=== PATIENT | female | born 1990 | race Hispanic/Latino ===

== ENCOUNTER → 2022-04-29 13:43 | Outpatient (CLI) | payer OTHER, SELFPAY ==
--- NOTE | 2022-04-29 | DI.ECHO.S_ITS ---
[place]---------+ [facility] +---------+ : : [address] : : : : [id number] : : : : Phone: [phone]+ Echocardiogram Report + + :Name: TONIE BUSTAMANTE Study Date: 04/29/2022 Height: 63 in : :[facility] ReadingLocation: Weight: 125 lb : : Gender: Female BSA: 1.6 m2 : :: 1990 Age: 31 yrs BP: 124/78 mmHg: :Reason For Study: RIGHT BUNDLE-BRANCH BLOCK : :Ordering Physician: NADEGE, : :MARIA ESTHER Performed By: Helga Almaguer : :Referring: MARIA ESTHER LIGHT : + + Interpretation Summary The left ventricle appears normal in size, wall thickness, and systolic function without any focal wall motion abnormalities. The ejection fraction is estimated to be 60-65%. The right ventricle is normal in size and function. No significant valvular pathology seen. Procedure: A two-dimensional transthoracic echocardiogram with color flow and Doppler was performed. The study quality was technically adequate. There is no prior echocardiogram noted for this patient. The patient was in sinus rhythm with heart rates between 67-73 bpm during the exam. Left Ventricle: The left ventricle appears normal in size, wall thickness, and systolic function without any focal wall motion abnormalities. There is no thrombus. The ejection fraction is estimated to be 60-65%. There are no focal wall motion abnormalities. Diastolic parameters suggest probable normal left ventricular diastolic function and normal filling pressures. Right Ventricle: The right ventricle is normal in size and function. Atria: The left atrial size is normal. Right atrial size is normal. There is no Doppler evidence for an interatrial shunt. Mitral Valve: The mitral valve is normal in structure and function. There is trace mitral regurgitation. Aortic Valve: The aortic valve is trileaflet. The aortic valve opens well. There is no aortic valve stenosis. There is no aortic regurgitation. Tricuspid Valve: The tricuspid valve is normal in structure and function. There is mild tricuspid regurgitation. The right ventricular systolic pressure is estimated to be at least 22 mmHg based on an estimated right atrial pressure of 3 mm Hg. Pulmonic Valve: The pulmonic valve leaflets are thin and pliable; valve motion is normal. There is trace pulmonic regurgitation. Great Vessels: The aortic root is normal size. The dimensions of the ascending aorta are normal. The IVC is of normal diameter and collapses greater than 50% with a sniff. This suggests a low right atrial pressure of 3 mm Hg. Pericardium/ Pleura There is no pericardial effusion. There is no pleural effusion. MMode/2D Measurements & Calculations LVIDd: 4.9 cm LVOT diam: 2.2 cm LVIDs: 3.1 cm Ao root diam: 2.8 cm FS: 37.5 % asc Aorta Diam: 2.9 cm IVSd: 0.66 cm Ao Arch Diam (Prox Trans): 1.8 cm LVPWd: 0.56 cm LV darby. diameter/BSA (cm/m^2): 3.1 LV sys. diameter/BSA (cm/m^2): 1.9 LA A2 area: 17.7 cm2 RA long axis: 3.5 cm LA A4 area: 14.0 cm2 RA area: 9.3 cm2 LA length (vol): 4.1 cm RA vol: 20.9 ml LA vol: 51.6 ml RA : 13.2 ml/m2 LA vol index: 32.6 ml/m2 IVC diam: 1.3 cm RVD1 (basal): 3.2 cm RVD2 (mid): 2.8 cm TAPSE: 2.6 cm Doppler Measurements & Calculations Ao V2 max: 105.2 cm/sec LVOT Max Refugio: 93.7 cm/sec Ao V2 mean: 79.6 cm/sec LV V1 max P.5 mmHg Ao max P.4 mmHg LV V1 VTI: 18.9 cm Ao mean P.7 mmHg MURRAY(I,D): 3.2 cm2 Ao V2 VTI: 23.0 cm MURRAY(V,D): 3.5 cm2 sev ratio: 0.82 MURRAY indexed to BSA (cm^2/m^2): 2.0 MV E max refugio: 71.1 cm/sec TR max refugio: 219.4 cm/sec MV A max refugio: 44.9 cm/sec TR max P.2 mmHg MV E/A: 1.6 PA V2 max: 90.6 cm/sec Med Peak E' Refugio: 13.1 cm/sec PA V2 mean: 66.4 cm/sec E/E' med: 5.4 PA mean P.0 mmHg Lat Peak E' Refugio: 16.3 cm/sec PA pr(Accel): 27.6 mmHg E/E' lat: 4.4 E/e' average: 4.9 MV dec time: 0.21 sec SV(LVOT): 74.0 ml Reading Physician:03:28 PM
== END ==
PROVIDERS: PCP Family Medicine; Referring Provider Internal Medicine Cardiovascular Disease; Visit Provider Internal Medicine Cardiovascular Disease
DX: I45.10 Unspecified right bundle-branch block (principal); I07.1 Rheumatic tricuspid insufficiency
CPT/HCPCS: 93306

== ENCOUNTER → 2022-07-08 15:53 | Outpatient (CLI) | payer OTHER, SELFPAY ==
--- NOTE | 2022-07-08 15:54 | DI.US.S_ITS ---
PROCEDURE: US OB <= 14 WEEKS FETUS INDICATIONS: DATES OUTSIDE/PRIOR DATING DATA: Last menstrual period (LMP): 05/12/2022. LMP-based estimated date of delivery (MIRLANDE): 02/16/2023. First dating scan (date and location): 07/08/2022. Estimated date of delivery (MIRLANDE) from first dating scan: 02/21/2023 TECHNIQUE: Real-time scanning was performed of the fetus and maternal pelvic organs, with image documentation. Endovaginal scanning was also performed to better visualize the fetus and maternal ovaries. COMPARISON: None. FINDINGS: Embryo: Present. CRL measures 1.2 cm, 7 weeks 3 days. Heart rate: 143 beats per minute Maternal organs: Ovaries are unremarkable. Other: Focal region of hypoattenuation deep to the gestational sac measuring 1.4 x 0.5 x 1.4 cm. Slow movement present within this region on the cine clip. IMPRESSION: Single living intrauterine at 7 weeks 3 days, MIRLANDE of 02/21/2023. Findings are concordant with clinical dating. Sub amniotic, round, hypoechoic lesion measuring 1.4 x 0.5 x 1.4 cm. This probably represents a fibroid, less likely venous Thibodeaux. Attention on follow-up. We strive to produce accurate, complete, and clear reports of imaging services. To assist us in improving patient care, this report was composed using standard report templates and voice recognition software. Therefore, it may contain abnormal punctuation, insertions and/or omissions. Occasional wrong-word or sound-alike substitutions may occur. Though we review the report and make efforts to correct it, we do recommend that the report be read carefully in proper context to recognize any text inaccuracies. Dictated by: Alexis Ventura M.D. on 07/08/2022 at 16:46 Approved by: Alexis Ventura M.D. on 07/08/2022 at 16:49
== END ==
PROVIDERS: PCP Family Medicine; Referring Provider Obstetrics & Gynecology; Visit Provider Obstetrics & Gynecology
DX: Z34.81 Encounter for supervision of other normal pregnancy, first trimester (principal); Z3A.01 Less than 8 weeks gestation of pregnancy
CPT/HCPCS: 76801; 76817

== ENCOUNTER → 2022-08-04 16:06 | Outpatient (CLI) | payer OTHER, SELFPAY ==
[2022-08-04 17:03] LABS: Add Manual Diff / Slide Review NO; Basophils Absolute Auto 0 /uL (0-100); Basophils Percent Auto 0.4 % (0-2); Eosinophils Absolute Auto 100 /uL (0-450); Eosinophils Percent Auto 0.8 % (2-4); Hematocrit 33.3 % (36-46); Hemoglobin 11.8 g/dL (12.0-16.0); Lymphocytes Absolute Auto 2500 /uL (1100-4500); Mean Corpuscular HGB Conc 35.4 % (30-36); Mean Corpuscular Hemoglobin 31.6 PG (26-34); Mean Corpuscular Volume 89.2 fL (80-100); Monocytes Absolute Auto 400 /uL (0-900); Monocytes Percent Auto 3.9 % (3-14); Neutrophils Absolute Auto 6900 /uL (1500-7000); Neutrophils Percent Auto 69.9 % (50-75); Platelet Count 307 X10^3/uL (150-400); Red Blood Cell Count 3.74 X10^6/uL (4.0-5.2); Red Cell Distribution Width 12.8 % (11.6-14.8); White Blood Cell Count 9.9 X10^3/uL (4.5-11.0)
[2022-08-04 20:41] LABS: Urine N gonorrhoeae NOT DETECTED
[2022-08-04 21:18] LABS: Urine Chlamydia NOT DETECTED
[2022-08-05 21:50] LABS: Hepatitis B Surface Antigen NEGATIVE s/c (NEGATIVE); Rubella Antibody IgG 5.1 IU/mL (>15)
[2022-08-05 22:07] LABS: HIV 1 & 2 Ab/Ag 4th Gen Combo NEGATIVE (NEGATIVE); Hep C Virus Ab w/Reflex Quant NEGATIVE s/c (NEGATIVE)
[2022-08-06 05:47] LABS: RPR Screen Non Reactive (Non Reactive)
[2022-08-06 08:41] LABS: Varicella IgG Antibody 789 index (Immune >165)
== END ==
PROVIDERS: PCP Family Medicine; Referring Provider Obstetrics & Gynecology; Visit Provider Obstetrics & Gynecology
DX: Z34.81 Encounter for supervision of other normal pregnancy, first trimester (principal); Z3A.12 12 weeks gestation of pregnancy
CPT/HCPCS: 36415; 80055; 86787; 86803; 86850; 86900; 86901; 87086; 87389; 87491; 87591

== ENCOUNTER → 2022-09-06 15:40 | Outpatient (CLI) | payer OTHER, SELFPAY ==
[2022-09-09 00:07] LABS: AFP, Serum 22.7 ng/mL (.); Calc Gestational Age EDD (.); Estriol, Free 0.76 ng/mL (.); Inhibin A, Dimeric 246.46 pg/mL (.); Inhibin A, MoM 1.47 (.); Maternal Ethnicity Other (.); Maternal Weight 129 lbs (.); Number of Fetuses No (.); OSBR Risk 1 IN 10000 (.); Results Report (.); Test Results *Screen Positive* (.); hCG, MoM 1.79 (.); hCG, Serum 72380 mIU/mL (.)
== END ==
PROVIDERS: PCP Family Medicine; Referring Provider Obstetrics & Gynecology; Visit Provider Obstetrics & Gynecology
DX: Z34.82 Encounter for supervision of other normal pregnancy, second trimester (principal); Z3A.16 16 weeks gestation of pregnancy
CPT/HCPCS: 36415; 82105; 82677; 84702; 86336

== ENCOUNTER → 2022-09-10 08:56 | Outpatient (CLI) | payer OTHER, SELFPAY ==
[2022-09-10 09:27] LABS: Specimen Label Y
== END ==
PROVIDERS: PCP Family Medicine; Referring Provider Obstetrics & Gynecology; Visit Provider Obstetrics & Gynecology
DX: O28.0 Abnormal hematological finding on antenatal screening of mother (principal)
CPT/HCPCS: 36415

== ENCOUNTER → 2022-09-29 16:18 | Outpatient (CLI) | payer OTHER, SELFPAY ==
--- NOTE | 2022-09-29 16:19 | DI.US.S_ITS ---
PROCEDURE: US OB >= 14 WEEKS FETUS INDICATIONS: ANATOMY OUTSIDE/PRIOR DATING DATA: Last menstrual period (LMP): 05/12/2022. LMP-based estimated date of delivery (MIRLANDE): 02/16/2023. First dating scan (date and location): 07/08/2022 at . Estimated date of delivery (MIRLANDE) from first dating scan: 02/21/2023. TECHNIQUE: Real-time scanning was performed of the fetus, with image documentation and biometric measurements. COMPARISON: [facility], , OB <= 14 WEEKS FETUS, 07/08/2022, 16:00. FINDINGS: General: A single living intrauterine gestation is present. Presentation: Vertex. Placenta: Placental position is anterior , without previa. Amniotic fluid index: 14.3 cm, normal range is 5-24 cm. Single deepest vertical pocket is 4.2 cm. heart rate: 157 beats per minute. Maternal cervical canal: 4 point cm long. Normal lower limit is 2.5 cm. biometrics: Biparietal diameter: 20 weeks 3 days Head circumference: 20 weeks 0 day Abdominal circumference: 20 weeks 1 day Femur length: 20 weeks 0 day Clinically estimated gestational age: 20 weeks 0 day Composite gestational age from present scan: 20 weeks 1 day. Estimated weight and percentile: 332 g; 51%. Anatomic survey: Neuro: Ventricles are non-dilated at less than 10 mm. Cisterna magna is normal at 3-11 mm. Cerebellum is normal in size and morphology. Nuchal skin fold: Normal at less than 6 mm between 14-21 weeks gestational age. Face: Nose and lips, facial profile are normal. Spine: No evidence for spina bifida. Heart: 4-chambered heart is present, with normal ventricular outflow tracts. Diaphragm: Diaphragm is intact. Stomach: Left-sided stomach is present. Kidneys: No hydronephrosis. Normal is less than 5 mm in 2nd trimester, less than 7 mm in 3rd trimester. Cord: 3-vessel cord has orthotopic insertion. Bladder: Normal in size. Extremities: All 4 extremities identified. IMPRESSION: 1. A single living intrauterine gestation with appropriate interval growth. 2. Normal anatomic survey. We strive to produce accurate, complete, and clear reports of imaging services. To assist us in improving patient care, this report was composed using standard report templates and voice recognition software. Therefore, it may contain abnormal punctuation, insertions and/or omissions. Occasional wrong-word or sound-alike substitutions may occur. Though we review the report and make efforts to correct it, we do recommend that the report be read carefully in proper context to recognize any text inaccuracies. Dictated by: Bernarda Rodriguez M.D. on 09/30/2022 at 16:11 Approved by: Bernarda Rodriguez M.D. on 09/30/2022 at 16:15
== END ==
PROVIDERS: PCP Family Medicine; Referring Provider Obstetrics & Gynecology; Visit Provider Obstetrics & Gynecology
DX: Z34.82 Encounter for supervision of other normal pregnancy, second trimester (principal); Z3A.20 20 weeks gestation of pregnancy
CPT/HCPCS: 76811

== ENCOUNTER → 2022-11-17 11:10 | Outpatient (CLI) | payer OTHER, SELFPAY ==
[2022-11-17 15:04] LABS: Hematocrit 31.9 % (36-46); Hemoglobin 11.1 g/dL (12.0-16.0)
[2022-11-17 15:36] LABS: GTT (PREG) 1 Hour PP 50gm Dose 110 mg/dL (76-139)
== END ==
PROVIDERS: PCP Family Medicine; Referring Provider Obstetrics & Gynecology; Visit Provider Obstetrics & Gynecology
DX: Z34.82 Encounter for supervision of other normal pregnancy, second trimester (principal); Z3A.24 24 weeks gestation of pregnancy
CPT/HCPCS: 36415; 82950; 85014; 85018

== ENCOUNTER → 2023-01-12 09:37 | Outpatient (CLI) | payer OTHER, SELFPAY | PROVIDERS: PCP Family Medicine; Visit Provider Obstetrics & Gynecology | DX: R82.998 Other abnormal findings in urine (principal) | CPT/HCPCS: 87086 ==

== ENCOUNTER → 2023-01-19 13:15 | Outpatient (CLI) | payer OTHER, SELFPAY ==
[2023-01-20 16:42] LABS: Strep Grp B PCR NEG for Grp B Strep
== END ==
PROVIDERS: PCP Family Medicine; Visit Provider Obstetrics & Gynecology
DX: Z34.83 Encounter for supervision of other normal pregnancy, third trimester (principal); Z3A.36 36 weeks gestation of pregnancy
CPT/HCPCS: 87653

== ENCOUNTER → 2023-01-19 13:24 | Outpatient (CLI) | payer OTHER, SELFPAY ==
[2023-01-19 14:05] LABS: Alanine Aminotransferase 57 IU/L (<35); Albumin 3.5 g/dL (3.5-5.0); Albumin Globulin Ratio 1.1 (1.0-2.8); Alkaline Phosphatase 249 U/L (38-126); Aspartate Aminotransferase 37 IU/L (14-36); Bilirubin Total 1.7 mg/dL (0.2-1.3); Bilirubin Unconjugated 0.8 mg/dL (0.0-1.1); Globulin 3.2 g/dL (1.7-4.1); HEMOLYSIS < 15 (0-50); Total Protein 6.7 g/dL (6.3-8.2)
[2023-01-22 00:04] LABS: Bile Acids 52.4 umol/L (0.0-10.0)
== END ==
PROVIDERS: PCP Family Medicine; Referring Provider Obstetrics & Gynecology; Visit Provider Obstetrics & Gynecology
DX: O99.713 Diseases of the skin and subcutaneous tissue complicating pregnancy, third trimester (principal); L29.9 Pruritus, unspecified; Z3A.36 36 weeks gestation of pregnancy
CPT/HCPCS: 36415; 80076; 82239; 87653

== ENCOUNTER → 2023-01-24 14:00 | Outpatient (CLI) | payer OTHER, SELFPAY ==
[2023-01-24 14:46] LABS: Alanine Aminotransferase 73 IU/L (<35); Albumin 3.6 g/dL (3.5-5.0); Alkaline Phosphatase 270 U/L (38-126); Aspartate Aminotransferase 39 IU/L (14-36); Bilirubin Unconjugated 0.5 mg/dL (0.0-1.1); Globulin 3.6 g/dL (1.7-4.1); HEMOLYSIS < 15 (0-50); Total Protein 7.2 g/dL (6.3-8.2)
== END ==
PROVIDERS: PCP Family Medicine; Referring Provider Physician Assistant Medical; Visit Provider Physician Assistant Medical
DX: O26.619 Liver and biliary tract disorders in pregnancy, unspecified trimester (principal); K83.1 Obstruction of bile duct
CPT/HCPCS: 36415; 80076

== ENCOUNTER 2023-01-24 14:33 | Outpatient (CLI) | payer OTHER, SELFPAY | END 2023-01-24 15:25 | disposition home or self-care (01) | LOC: OB 01-28 13:50 | PROVIDERS: PCP Family Medicine; Referring Provider Obstetrics & Gynecology; Visit Provider Obstetrics & Gynecology | DX: O26.643 Intrahepatic cholestasis of pregnancy, third trimester (principal); K83.1 Obstruction of bile duct; Z3A.36 36 weeks gestation of pregnancy; O26.619 Liver and biliary tract disorders in pregnancy, unspecified trimester | CPT/HCPCS: 36415; 59025; 80076; G0378; G0379 ==

== ENCOUNTER 2023-01-25 11:10 | Inpatient (IN) | payer OTHER, SELFPAY ==
--- NOTE | 2023-01-25 08:45 | P.HPOB_ITS ---
OB HPI Date/Time Date of admission: 01/25/23 Date Patient Seen: 01/25/23 History of Present Condition Chief complaint: Repeat MIRLANDE Calculator 2 Estimated Delivery Date Method Current WG Current Estimate 02/16/23 LMP (Certain) 36w 6d Other Estimates 02/21/23 Ultrasound #1 36w 1d Estimated Gestational Age (weeks): 36+6 : 3 Para: 1 care: good care, initiated at week # (12), number of visits (10) and pounds weight gain (24) Dating criteria OB: LMP confirmed by 1st trimester US Ultrasounds: normal 1st trimester US and normal mid trimester US Obstetrical complications: other (Cholestasis of ) Medical complications OB: none Indications Operative indications ( section): previous uterine surgery (Cholestasis of , increasing liver function tests) Preadmission Labs Last OB Lab Results: 2 Blood Type O Positive 08/04/22 16:14 Antibody Screen Negative 08/04/22 16:14 Hematocrit 33.8 % (36-46) L 01/25/23 11:55 Hemoglobin 11.8 g/dL (12.0-16.0) L 01/25/23 11:55 Hepatitis B Surface Antigen Negative s/c (NEGATIVE) 08/04/22 16 :14 Hepatitis C Antibody Negative s/c (NEGATIVE) 08/04/22 16:14 Rubella Antibody 5.1 IU/mL (>15) L 08/04/22 16:14 Varicella-Zoster IgG Antibody 789 index (Immune >165) 08/04/22 16:14 Glucose 1 Hour 110 mg/dL (76-139) 11/17/22 12:37 Group B Streptococcus (PCR) Neg for grp b strep 01/19/23 13:15 -: Chlamydia screen: negative, Gonorrhea screen: negative and Urine: negative -: PAP smear: Normal (2021) Genetic Screens: Quad screen: Abnormal (Increased risk for Down syndrome) and Cell-free DNA: Normal External Labs -: Urine: negative Prior (ies) Past Pregnancies Del. Date GA/Weeks Labor Lgth Wt Sex Route Outcome Anesthesia Place Delv Breastfeed Preg Comp Name 11/13/07 4-6 spontaneous 07/08/20 39 7 lb 7 oz Female live - full t erm spinal [facility] 6 months induced hyper- Sebastian Delivery Date: 11/13/07 Last Updated by: Jewell Friedman RN Needed D&C, no complications Evaluation Evaluation Baseline heart rate: 130 Variability: Moderate (11-25) monitor accelerations: Present Monitor Decelerations: Absent Uterine Contraction Intensity: Mild Status: Category l PFS Medical History (Updated 01/19/23 @ 16:19 by Rajiv Pyle MD) Chicken pox (~1996) Right bundle branch block (~2021) induced hypertension Surgical History (Updated 01/12/23 @ 09:47 by Rajiv Pyle MD) Anesthesia Vevay teeth extracted History of appendectomy (~11/2000) Previous section (~07/08/20) Family History (Updated 08/05/22 @ 19:14 by Cristina Mendes) Father Hypertension Grandmother Heart failure Grandfather Pancreatic cancer Grandfather Stroke Social History marital status: number of children: 1 household members: spouse and children lives independently: Yes caregiver/support person: Yes housing: house pets and animals: No education level: master's degree (business/finance) occupational status: employed (works from home) current occupational exposures/hazards: No special jannette needs: No travel history: recent (domestic only) seatbelt use: always water heater temp set < 120 deg: Yes working smoke detector in home: Yes fire extinguisher in home: Yes carbon monox detector in home: Yes firearms in home: No do you feel safe at home: Yes Smoking Status: Never smoker second hand exposure: Yes (occasional cigar outside) alcohol intake: former (1-2/week when not ) substance use type: does not use during the past year weight has: remained stable well-balanced diet: about half the time daily servings fruits/ve-4 caffeine: Yes (occasional AM cup coffee) Type(s) of exercise: walking Meds Home Medications and Allergies Home Medications Medication Instructions Recorded Confirmed Type prenat.vits,too,swp-vcbu-kevcl 1 tab PO DAILY 07/07/22 01/24/23 History Allergies Allergy/AdvReac Type Severity Reaction Status Date / Time No Known Drug Allergies Allergy Unverified 01/12/23 09:28 OB Exam Narrative Exam Narrative: Generally: Patient is sitting up in bed, no acute distress Lungs: Clear to auscultation bilaterally Cardiovascular: Regular rate and rhythm Fundal height: 37 cm Estimated weight: 6 lb Extremities: No edema Objective Labs 01/25/23 11:55 Assessment and Plan Assessment and Plan Assessment and Plan narrative: Assessment: 32-year-old 3 para 1 at 36-,6/7 weeks gestation with a previous section Cholestasis of with rising liver enzymes Plan: Repeat low-transverse section The risks, benefits, and alternatives to the procedure were explained to the patient. The risks including bleeding, infection, injury to the bowel, bladder, or ureters. She understands these risks and agrees to proceed. A full par Q was held and consent form was signed. Time Spent with Patient Total time spent with greater than 50% in coordination of care (as documented) at patient's floor/unit and/or counseling patient:: 15-24 minutes
[2023-01-25] MEDS: LACTATED RINGERS 1,000 ML 999 ML IV (12:53)
[2023-01-25 13:01] LABS: Add Manual Diff / Slide Review NO; Basophils Absolute Auto 100 /uL (0-100); Basophils Percent Auto 0.7 % (0-2); Eosinophils Absolute Auto 0 /uL (0-450); Eosinophils Percent Auto 0.3 % (2-4); Hematocrit 33.8 % (36-46); Hemoglobin 11.8 g/dL (12.0-16.0); Lymphocytes Absolute Auto 2200 /uL (1100-4500); Lymphocytes Percent Auto 22.4 % (25-40); Mean Corpuscular Hemoglobin 31.5 PG (26-34); Mean Corpuscular Volume 89.9 fL (80-100); Monocytes Absolute Auto 400 /uL (0-900); Monocytes Percent Auto 4.2 % (3-14); Neutrophils Absolute Auto 7000 /uL (1500-7000); Neutrophils Percent Auto 72.4 % (50-75); Platelet Count 260 X10^3/uL (150-400); Red Blood Cell Count 3.75 X10^6/uL (4.0-5.2); Red Cell Distribution Width 13.1 % (11.6-14.8); White Blood Cell Count 9.6 X10^3/uL (4.5-11.0)
--- NOTE | 2023-01-25 13:24 | PM.PREOP ---
Pre-operative Note Interval Note History & Physical reviewed/Exam performed by Physician: Yes Changes to H&P: No H&P completed within 30 days and has changed as indicated here:: 01/25/23
[2023-01-25 13:30] VITALS: BP 116/70
[2023-01-25] MEDS: CITRIC ACID/SODIUM CITRATE 15 ML SOLUTION 30 ML PO (14:43)
[2023-01-25] MEDS: CEFAZOLIN 2 GM/100 ML PREMIX 100 ML IV (15:13)
[2023-01-25] MEDS: ACETAMINOPHEN IV 1,000 MG/100 ML VIAL 400 MG IV (15:20)
--- NOTE | 2023-01-25 15:52 | SUR.OPER ---
Supine on padded OR bed, head on pillow, arms secured on padded arm boards at <90 degrees abduction, legs uncrossed, safety belt at thigh, tape over blanket over lower legs.
[2023-01-25] MEDS: TRIAMCINOLONE 40 MG/ML VIAL 10 MG IM (16:01)
--- NOTE | 2023-01-25 16:06 | PM.OBCS.1 ---
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 She assisted with delivery of the with fundal pressure. She assisted with closure with retraction, clipping of suture, and closure of the contralateral fascia. Anesthesia Type: Spinal (With Duramorph) Operative Notes Findings: Live male infant in the CHIO presentation Keloid of the Pfannenstiel scar Normal uterus, tubes, and ovaries Closure Type: primary Specimen(s): cord blood and placenta Intraoperative meds administered: Acetaminophen, Duramorph, Ketorolac and Pitocin Applied: Catheter (To continuous drainage) Estimated Blood Loss (mL): 350 Blood products transfused: none Procedure in detail: After informed consent was obtained, the patient was taken to the operating room where she was placed in the seated position. Spinal anesthesia with Duramorph was administered. She was placed in the dorsal supine position with a leftward tilt, and prepped and draped in the usual sterile fashion. A Dunn catheter was placed. A time-out was performed. Spinal anesthesia was found to be adequate. The previous Pfannenstiel incision was excised in an elliptical fashion. The incision was carried down to the underlying layer of fascia. The fascia was nicked in the midline and the incision extended bilaterally with the Ordonez scissors. The superior aspect of the fascial incision was grasped with the João clamps, elevated, and the underlying rectus muscles dissected off sharply and bluntly. Attention was then turned to the inferior aspect of this incision which in a similar fashion was grasped with the João clamps, elevated, and the underlying rectus muscles dissected off sharply and bluntly. The rectus muscles were in the midline. Peritoneum was identified and grasped between 2 hemostats. This was entered sharply with the Metzenbaum scissors. This incision was extended superiorly and inferiorly with good visualization of the bladder. The bladder blade was inserted. The vesicouterine peritoneum was identified, grasped with a pickup, and entered sharply with the Metzenbaum scissors. This incision was extended bilaterally, and the bladder flap created digitally. The bladder blade was reinserted. The lower uterine segment was incised in a transverse fashion with the scalpel. Upon entering the amniotic sac there was clear amniotic fluid. The infant's head was delivered without difficulty. The cord was double clamped and cut after 1 minute. Cord bloods were obtained. The placenta delivered by expression. Pitocin was given in the IV fluids prior to placental removal. The uterus was cleared of all clots and debris. The uterine incision was repaired with 1. Chromic in running interlocking fashion. A second layer the same suture was used for an imbricating layer. Hemostasis was achieved. The tubes and ovaries were examined and were found to be normal. The bladder flap was reapproximated using 2-0 Vicryl in a running fashion. The parietal peritoneum was closed using 2-0 Vicryl in a running fashion. The fascia was reapproximated using 0 Vicryl in a running fashion. Hemostasis was achieved in the subcutaneous layer using the Bovie and irrigated with warm normal saline. Five simple interrupted sutures with 3-0 Vicryl were placed in the subcutaneous layer. The skin was closed with 4 0 Monocryl in a subcuticular fashion. A solution of 10 mg of Kenalog in 10 cc of saline were injected with 1 milligram/centimeter of tissue along the Pfannenstiel scar. Mastisol, Steri-Strips, and an Aquacel dressing were placed. The uterus was expressed of a small amount of old blood. Sponge, lap, and instrument counts were correct x2. The patient tolerated the procedure well, and was taken to PACU in stable condition. Complications: none [place] Baby 1: Infant Gender: Male Presentation: vertex Position: Left Occiput Anterior Placental Delivery Description: Expressed Cord Vessel Description: 3 Vessels and Clamped/Cut (after one minute) score (1 min): 7 score (5 min): 9 weight: 6 lb 7.7 oz Post-operative Condition: stable Disposition: PACU Aftercare: routine postop
[2023-01-25 16:08] VITALS: BP 102/57; PULSE 81; RESP 17; TEMP 36.4; O2SAT 99
[2023-01-25 16:13] VITALS: BP 106/65; PULSE 75; RESP 21; O2SAT 94
[2023-01-25 16:20] VITALS: BP 99/59; PULSE 76; RESP 13; O2SAT 99
--- NOTE | 2023-01-25 16:20 | SUR.PHASEI ---
Two labor and delivery nurses at bedside assisting with patient from OR. Patient stable; denies pain or nausea. VSS.
--- NOTE | 2023-01-25 16:23 | SUR.OPER ---
Pt delivered viable baby boy at 1529. Placenta and cord blood tubes x2 given to L&D nurse.
[2023-01-25 16:24] VITALS: BP 107/66; PULSE 81; RESP 16; TEMP 36.4; O2SAT 98
[2023-01-25] MEDS: KETOROLAC 30 MG/ML VIAL IV (22:00)
[2023-01-25] MEDS: LANOLIN OINT 7 GM 1 APPLIC TOP (22:02)
[2023-01-25] MEDS: ACETAMINOPHEN 325 MG TABLET 650 MG PO (22:02)
[2023-01-26] MEDS: KETOROLAC 30 MG/ML VIAL IV ×2 (04:02→10:27)
[2023-01-26 06:39] LABS: Hematocrit 29.7 % (36-46); Hemoglobin 10.5 g/dL (12.0-16.0)
[2023-01-26] MEDS: ACETAMINOPHEN 325 MG TABLET 650 MG PO ×2 (07:58→14:57)
[2023-01-26] MEDS: PRENATAL VIT,CALC/IRON/FOLIC 1 TABLET 1 TAB PO (08:32)
[2023-01-26] MEDS: DOCUSATE 100 MG CAPSULE PO (08:32)
[2023-01-26 16:00] VITALS: BP 107/66; PULSE 81; RESP 16; TEMP 36.4
--- NOTE | 2023-01-30 14:10 | PM.OBDS.1 ---
Discharge Providers Provider Date of admission: 01/25/23 11:10 Discharge Date: 01/26/23 Primary care physician: Eliz Yadav MD Consults: 01/25/23 18:53 Consult to Public Health Aide Routine Comment: Discharge provider: Sheree White MD Summary Hospital Course Date Patient Seen: 01/26/23 Time Patient Seen: 09:15 Diagnoses: EGA 37 weeks Cholestasis of Previous C section Hospital Course: Patient is a 32-year-old 3 para 1112 who underwent a repeat low-transverse section on January 25, 2023 due to cholestasis of with rising liver function tests. She underwent a repeat without complication. Her postoperative course was unremarkable. She was discharged home on postop day #1. Peripartum Data Infant Delivery Method: Section Procedures: Repeat low transverse C section Spinal anesthesia complications: none [place] 1: Gender: Male Disposition of : home Status at Discharge Cognitive/behavioral status at discharge: oriented Functional status at discharge: independent ambulation Overall status at discharge: patient is progressing back to baseline Time Spent with Patient Time attestation: Total time spent providing and/or coordinating discharge services: Time spent: Less than 30 minutes Objective Labs 01/26/23 06:21 Exam Vital Signs (past 8 hours): Oxygen Delivery Method Room Air Narrative Exam Narrative: Generally: Patient is sitting up in bed, holding , no acute distress Lungs: Clear to auscultation bilaterally Cardiovascular: Regular rate and rhythm Fundus: Firm at U-2 Incision: Clean dry and intact with Aquacel dressing Extremities: No edema, negative Homans Discharge Plan Discharge Plan Patient Disposition: Home Provider Discharge Comment: Call with fever, chills, redness or drainage around the incision, or bleeding vaginally more than a pad in an hour Ibuprofen 600 mg every 6 hours as needed Tylenol 650 mg every 6 hours as needed Discharge orders & Medications Prescriptions: New oxycodone 5 mg tablet 5 mg PO Q4H PRN (Reason: pain) Qty: 14 0RF Continued prenat.vits,too,boy-aycu-ykmgi Tablet 1 tab PO DAILY Follow up/Referrals: Sheree White MD [Physician] - (Incision check on 02/01/23 @ 2pm 6 week post appt on 03/08/23 @ 0800 am) Activity Restrictions/Additional Instructions: No heavy lifting Nothing in the vagina for 6 weeks Diet/Activity/Treatments Diet: Regular Skin/Wound/Dressing Care Report to your healthcare provider any signs of infection, such as:: chills, fever, increased pain, unusual drainage and unusual redness Dressing: Do not remove Visit Report/Discharge Packet Instructions: DI for , DI for Prescription Opioid Use Stand Alone Forms: Patient Portal/API, Stroke Signs & Symptoms Discharge Data Primary Care Provider: Eliz Yadav
== END 2023-01-26 16:48 | disposition home or self-care (01) | DRG 787 ==
PROVIDERS: Admitting Provider Obstetrics & Gynecology; PCP Family Medicine; Referring Provider Obstetrics & Gynecology; Visit Provider Obstetrics & Gynecology
PROC: 10D00Z1 Extraction of Products of Conception, Low, Open Approach (ICD-10-PCS; CPT 59514; principal; 2023-01-25 12:45)
DX: O34.211 Maternal care for low transverse scar from previous cesarean delivery (principal); O26.643 Intrahepatic cholestasis of pregnancy, third trimester; Z3A.36 36 weeks gestation of pregnancy; Z37.0 Single live birth; O99.891 Other specified diseases and conditions complicating pregnancy; L91.0 Hypertrophic scar
CPT/HCPCS: 36415; 59025; 59050; 59510; 59514; 85014; 85018; 85025; 86850; 86900; 86901; J0131; J0690; J1885; J2274